=== PATIENT | female | born 1955 | race Caucasian/White ===

== ENCOUNTER 2017-10-07 15:50 | Inpatient (IN) ==
[2017-10-07 16:53] LABS: Basophils % 0.3 %; Eosinophils % 0.2 %; Hematocrit 39.6 % (35.3-44.9); Hemoglobin 13.3 g/dL (11.5-15.4); Immature Granulocytes % 0.4 % (0-4); Lymphocytes # 0.5 K/mcL (0.6-4.6); Mean Corpuscular HGB Conc 33.6 g/dL (31.6-35.5); Mean Corpuscular Hemoglobin 29.8 pg (28.0-33.3); Mean Corpuscular Volume 88.8 fL (83.0-100.0); Mean Platelet Volume 9.6 fL (9.4-12.4); Monocytes # 0.4 K/mcL (0.0-1.3); Monocytes % 2.8 %; Neutrophils # 11.6 K/mcL (1.6-8.9); Platelet Count 192 K/mcL (140-400); Red Blood Count 4.46 M/mcL (3.82-4.97); Red Cell Distribution Width 13.2 % (11.5-14.5); Segmented Neutrophils % 92.3 %
[2017-10-07 17:03] LABS: Activated Partial Thrombo Time 31.3 Seconds (26.0-36.0)
[2017-10-07 17:10] LABS: Bilirubin,Urine Negative (Negative); Blood,Urine Small (Negative); Clarity,Urine Cloudy (Clear); Color,Urine Yellow (Yellow); Glucose,Urine (UA) Normal (Normal); Ketones,Urine Trace mg/dL (Negative); Leukocyte Esterase,Urine Large (Negative); Nitrite,Urine Negative (Negative); PH,Urine 5.5 pH Units (5.0-8.0); Protein,Urine 30 mg/dL (Neg-Trace); Specific Gravity,Urine 1.026 (1.010-1.025); Urobilinogen,Urine Normal (Normal)
[2017-10-07 17:11] LABS: Bacteria,Urine Few per hpf (None-Few); Hyaline Casts,Urine None Seen per lpf (None-Few); RBC,Urine 15-30 per hpf (0-3); Squamous Epithelial Cell,Urine Many per lpf (None-Few); WBC,Urine TNTC per hpf (0-3)
[2017-10-07 17:12] LABS: BUN/Creatinine Ratio 25 (6-26); Blood Urea Nitrogen 18 mg/dL (8-23); Calcium 9.5 mg/dL (8.6-10.3); Carbon Dioxide 26 mEq/L (23-29); Chloride 104 mEq/L (98-107); Glucose 97 mg/dL (70-105); Osmolality,Calculated 288 (280-300); Potassium 4.1 mEq/L (3.5-5.1); Sodium 138 mEq/L (136-145); eGFR For Non-African Americans > 60 (> 60)
[2017-10-07] MEDS ORDERED: Levofloxacin 750 MG/150 ML 750 MG/150 ML BAG IVPB ONE (17:22)
[2017-10-07] MEDS ORDERED: Ketorolac 15 MG/ML VIAL IVP ONE (17:33)
[2017-10-07 17:38] LABS: Prothrombin Time 11.2 Seconds (9.4-12.1)
[2017-10-07] MEDS ORDERED: cefTRIAXone 2,000 MG in Water for inj. (sterile) 20 ML 20 ML IVP ONE (18:05)
--- NOTE | 2017-10-07 18:05 | Emergency Department Note ---
Disposition Clinical Impression: Left flank pain, Ureterolithiasis Abdominal pain Qualifiers: Abdominal location: left lower quadrant Qualified Code(s): R10.32 - Left lower quadrant pain Disposition: Admitted As Inpatient Condition: Fair Time of Disposition: 18:34 Abdominal Pain HPI - General Chief Complaint: ED Abdominal Pain Stated Complaint: Kidney Stone Time Seen by Provider: 10/07/17 15:53 Source: patient, EMS Nursing Notes Reviewed: Yes Vital Signs Reviewed: Yes - History of Present Illness HPI Narrative: Patient is a 62-year-old female who presents to [facility] ED with a chief complaint of abdominal pain. States earlier today around 13:00 , her pain hit and states it was so bad that it doubled her over. She went to the urgent care where they performed an x-ray and saw a large kidney stone. She was given Toradol and Phenergan and transferred over here for further evaluation. Patient states she was nauseated and vomited twice with this painful episode. Denies any prior history of kidney stones. She has a past medical history of rheumatoid arthritis. Pt Subjective Complaint: abdominal pain Onset (ago): hour(s) Consistency: Improving Location: LLQ, L flank Pain Severity: moderate Pain Scale: 6 Quality: stabbing, aching Radiation: L flank Migration to: no migration Improves with: nothing Worsens with: nothing Associated symptoms: Reports: nausea, vomiting. Denies: diarrhea, fever, chills , constipation, dysuria Treatments prior to arrival: NSAIDs - Related Data Home Medications Medication Instructions Recorded Confirmed Citalopram Hydrobromide 40 mg PO DAILY 10/07/17 10/07/17 [Citalopram HBr] Hydroxychloroquine [Plaquenuil] 200 mg PO BID 10/07/17 10/07/17 Naproxen [Naproxen] 500 mg PO BID 10/07/17 10/07/17 Tramadol HCl [Ultram] 50 mg PO BID PRN 10/07/17 10/07/17 Allergies Allergy/AdvReac Type Severity Reaction Status Date / Time No Known Allergies Allergy Verified 10/07/17 17:40 All systems ED: reviewed and negative except as stated. Abdominal Pain PMH - Past Medical History Medical history: Reports: RA Female Surgical History: Reports: no surgical history Psychiatric history: Reports: no psych history - Social History Smoking status: Never smoker Alcohol use: Reports: none Drug use: Reports: unknown Physical Exam - General Limitations: no limitations General appearance: alert, in no apparent distress - Head Head exam: atraumatic, normocephalic, normal inspection - Eye Eye exam: Present: normal appearance, EOMI - ENT ENT exam: normal exam, normal oropharynx, mucous membranes moist - Neck Neck exam: Present: normal inspection, full ROM, trachea midline - Chest Chest inspection: Present: normal inspection, symmetric chest wall rise - Respiratory Respiratory exam: Present: normal lung sounds bilaterally - Cardiovascular Cardiovascular exam: Present: regular rate, normal rhythm, normal heart sounds - Abdominal Exam Abdominal exam: Present: soft, tenderness Abdominal tenderness: Present: LLQ, mild - Extremities Exam Extremities exam: Present: normal inspection, full ROM. Absent: tenderness, pedal edema - Back Exam Back exam: Present: normal inspection, full ROM, CVA tenderness (L) - Neurological Exam Neurological exam: Present: alert, oriented X3 - Psychiatric Psychiatric exam: Present: normal affect, normal mood - Skin Skin exam: Present: warm, dry, intact, normal color Course Course Narrative: Patient seen and examined. Left abdominal pain leading to the flank. Diagnosis of renal stone on x-ray at urgent care. Lab work, urine analysis, CT abdomen and pelvis ordered. - Reevaluation(s) Reevaluation #1: Labwork shows mild leukocytosis and elevated white blood cells in the urine as well as a small amount of bacteria in the urine. We will go ahead and cover with Levaquin. The CT scan shows an 8 mm obstructing stone at the left UPJ with moderate hydronephrosis. I discussed with urologist Dr. De La Rosa who states if the pains under control, we can get the patient going home and she can follow -up tomorrow morning in his office. I discussed this with the patient and she was concerned about not being able to get a ride in the morning for her appointment and about living alone at home and her pain coming out. Since she has some difficulty with resources and follow-up, we will go ahead and admit her. I called urologist back and they have been consulted. Patient admitted to the hospitalist service. Time: 18:33 Vital Signs Temperature 97.8 F 10/07/17 15:52 Pulse Rate 82 10/07/17 15:52 Respiratory Rate 18 10/07/17 15:52 Blood Pressure 134/63 10/07/17 15:52 O2 Sat by Pulse Oximetry 98 10/07/17 15:52 Temperature 97.8 F 10/07/17 15:52 Pulse Rate 77 10/07/17 17:44 Respiratory Rate 16 10/07/17 19:00 Blood Pressure 119/65 10/07/17 19:00 O2 Sat by Pulse Oximetry 95 10/07/17 17:44 Oxygen Delivery Oxygen Delivery Room Air Abdominal Pain - Medical Records Medical records reviewed: Yes I reviewed the patient's medical records. - Lab Data Lab results reviewed: Yes I reviewed the patient's lab results. Result diagrams: 10/07/17 16:27 10/07/17 16:27 Lab Results 10/07/17 10/07/17 10/07/17 Range/Units 16:27 16:27 16:27 WBC 12.6 H (4.3-11.1) K/mcL RBC 4.46 (3.82-4.97) M/mcL Hgb 13.3 (11.5-15.4) g/dL Hct 39.6 (35.3-44.9) % MCV 88.8 (83.0-100.0) fL MCH 29.8 (28.0-33.3) pg MCHC 33.6 (31.6-35.5) g/dL RDW 13.2 (11.5-14.5) % Plt Count 192 (140-400) K/mcL MPV 9.6 (9.4-12.4) fL Immature Gran % 0.4 (0-4) % Seg Neutrophils % 92.3 % Lymphocytes % 4.0 % Monocytes % 2.8 % Eosinophils % 0.2 % Basophils % 0.3 % Neutrophils # 11.6 H (1.6-8.9) K/mcL Lymphocytes # 0.5 L (0.6-4.6) K/mcL Monocytes # 0.4 (0.0-1.3) K/mcL Eosinophils # 0.0 (0.0-0.6) K/mcL Basophils # 0.0 (0.0-0.2) K/mcL PT 11.2 (9.4-12.1) Seconds INR 1.0 APTT 31.3 (26.0-36.0) Seconds Sodium 138 (136-145) mEq/L Potassium 4.1 (3.5-5.1) mEq/L Chloride 104 (98-107) mEq/L Carbon Dioxide 26 (23-29) mEq/L BUN 18 (8-23) mg/dL Creatinine 0.71 (0.60-1.20) mg/dL Est GFR ( Amer) > 60 (> 60) Est GFR (Non-Af Amer) > 60 (> 60) BUN/Creatinine Ratio 25 (6-26) Glucose 97 (70-105) mg/dL Calculated Osmolality 288 (280-300) Calcium 9.5 (8.6-10.3) mg/dL Urine Color (Yellow) Urine Clarity (Clear) Urine pH (5.0-8.0) pH Units Ur Specific [place] (1.010-1.025) Urine Protein (Neg-Trace) mg/dL Urine Glucose (UA) (Normal) mg/dL Urine Ketones (Negative) mg/dL Urine Blood (Negative) Urine Nitrite (Negative) Urine Bilirubin (Negative) Urine Urobilinogen (Normal) mg/dL Ur Leukocyte Esterase (Negative) Urine Microscopic RBC (0-3) per hpf Urine Microscopic WBC (0-3) per hpf Ur Squamous Epith Cells (None-Few) per lpf Urine Bacteria (None-Few) per hpf Hyaline Casts (None-Few) per lpf Ur Culture Indicated? (NO) 10/07/17 Range/Units 16:58 WBC (4.3-11.1) K/mcL RBC (3.82-4.97) M/mcL Hgb (11.5-15.4) g/dL Hct (35.3-44.9) % MCV (83.0-100.0) fL MCH (28.0-33.3) pg MCHC (31.6-35.5) g/dL RDW (11.5-14.5) % Plt Count (140-400) K/mcL MPV (9.4-12.4) fL Immature Gran % (0-4) % Seg Neutrophils % % Lymphocytes % % Monocytes % % Eosinophils % % Basophils % % Neutrophils # (1.6-8.9) K/mcL Lymphocytes # (0.6-4.6) K/mcL Monocytes # (0.0-1.3) K/mcL Eosinophils # (0.0-0.6) K/mcL Basophils # (0.0-0.2) K/mcL PT (9.4-12.1) Seconds INR APTT (26.0-36.0) Seconds Sodium (136-145) mEq/L Potassium (3.5-5.1) mEq/L Chloride (98-107) mEq/L Carbon Dioxide (23-29) mEq/L BUN (8-23) mg/dL Creatinine (0.60-1.20) mg/dL Est GFR ( Amer) (> 60) Est GFR (Non-Af Amer) (> 60) BUN/Creatinine Ratio (6-26) Glucose (70-105) mg/dL Calculated Osmolality (280-300) Calcium (8.6-10.3) mg/dL Urine Color Yellow (Yellow) Urine Clarity Cloudy A (Clear) Urine pH 5.5 (5.0-8.0) pH Units Ur Specific [place] 1.026 H (1.010-1.025) Urine Protein 30 H (Neg-Trace) mg/dL Urine Glucose (UA) Normal (Normal) mg/dL Urine Ketones Trace H (Negative) mg/dL Urine Blood Small H (Negative) Urine Nitrite Negative (Negative) Urine Bilirubin Negative (Negative) Urine Urobilinogen Normal (Normal) mg/dL Ur Leukocyte Esterase Large H (Negative) Urine Microscopic RBC 15-30 H (0-3) per hpf Urine Microscopic WBC TNTC H (0-3) per hpf Ur Squamous Epith Cells Many H (None-Few) per lpf Urine Bacteria Few (None-Few) per hpf Hyaline Casts None Seen (None-Few) per lpf Ur Culture Indicated? NO (NO) - Radiology Data Radiology results reviewed: Yes I reviewed the patient's radiology results. Abdomen/Pelvis CT 10/07/17 16:26 IMPRESSION: 1. Obstructing 8 mm stone at the left UPJ, resulting in moderate left-sided hydronephrosis. 2. Subtle layering hyperdensity noted within the gallbladder could indicate sludge or small gallstones. D/ / 10/07/2017 17:04:18 Anthony Ledesma MD / ivelisse Interpreting Provider: Anthony Ledesma MD
--- NOTE | 2017-10-07 18:45 | Emergency Department Note ---
Disposition Clinical Impression: Abdominal pain, Left flank pain, Ureterolithiasis Disposition: Admitted As Inpatient Condition: Fair Abdominal Pain HPI - General Chief Complaint: ED Abdominal Pain Stated Complaint: Kidney Stone Time Seen by Provider: 10/07/17 15:53 Source: patient, EMS Mode of arrival: ambulatory Limitations: no limitations Nursing Notes Reviewed: Yes Vital Signs Reviewed: Yes - History of Present Illness Pain Scale: 6 - Related Data Home Medications Medication Instructions Recorded Confirmed Citalopram Hydrobromide 40 mg PO DAILY 10/07/17 10/07/17 [Citalopram HBr] Hydroxychloroquine [Plaquenuil] 200 mg PO BID 10/07/17 10/07/17 Naproxen 500 mg PO BID 10/07/17 10/07/17 Tramadol HCl [Ultram] 50 mg PO BID PRN 10/07/17 10/07/17 Previous Rx's Medication Instructions Recorded HYDROcodone/Acet 5/325 mg [[place] 1 tab PO Q6HR PRN 1 Days #4 tablet 10/08/17 5-325 mg] Allergies Allergy/AdvReac Type Severity Reaction Status Date / Time No Known Allergies Allergy Verified 10/07/17 17:40 Abdominal Pain PMH - Past Medical History Medical history: Reports: RA Female Surgical History: Reports: no surgical history Psychiatric history: Reports: no psych history - Social History Smoking status: Never smoker Alcohol use: Reports: none Drug use: Reports: unknown Physical Exam - General Limitations: no limitations General appearance: alert, in no apparent distress Course Vital Signs Temperature 97.8 F 10/07/17 15:52 Pulse Rate 82 10/07/17 15:52 Respiratory Rate 18 10/07/17 15:52 Blood Pressure 134/63 10/07/17 15:52 O2 Sat by Pulse Oximetry 98 10/07/17 15:52 Temperature 98.3 F 10/09/17 06:29 Pulse Rate 80 10/09/17 06:29 Respiratory Rate 15 10/09/17 06:29 Blood Pressure 129/82 10/09/17 06:29 O2 Sat by Pulse Oximetry 95 10/09/17 06:29 Oxygen Delivery Oxygen Delivery Room Air Abdominal Pain - Lab Data Result diagrams: 10/08/17 04:55 10/08/17 04:55 Lab Results 10/07/17 10/07/17 10/07/17 Range/Units 16:27 16:27 16:27 WBC 12.6 H (4.3-11.1) K/mcL RBC 4.46 (3.82-4.97) M/mcL Hgb 13.3 (11.5-15.4) g/dL Hct 39.6 (35.3-44.9) % MCV 88.8 (83.0-100.0) fL MCH 29.8 (28.0-33.3) pg MCHC 33.6 (31.6-35.5) g/dL RDW 13.2 (11.5-14.5) % Plt Count 192 (140-400) K/mcL MPV 9.6 (9.4-12.4) fL Immature Gran % 0.4 (0-4) % Seg Neutrophils % 92.3 % Lymphocytes % 4.0 % Monocytes % 2.8 % Eosinophils % 0.2 % Basophils % 0.3 % Neutrophils # 11.6 H (1.6-8.9) K/mcL Lymphocytes # 0.5 L (0.6-4.6) K/mcL Monocytes # 0.4 (0.0-1.3) K/mcL Eosinophils # 0.0 (0.0-0.6) K/mcL Basophils # 0.0 (0.0-0.2) K/mcL PT 11.2 (9.4-12.1) Seconds INR 1.0 APTT 31.3 (26.0-36.0) Seconds Sodium 138 (136-145) mEq/L Potassium 4.1 (3.5-5.1) mEq/L Chloride 104 (98-107) mEq/L Carbon Dioxide 26 (23-29) mEq/L BUN 18 (8-23) mg/dL Creatinine 0.71 (0.60-1.20) mg/dL Est GFR ( Amer) > 60 (> 60) Est GFR (Non-Af Amer) > 60 (> 60) BUN/Creatinine Ratio 25 (6-26) Glucose 97 (70-105) mg/dL Calculated Osmolality 288 (280-300) Calcium 9.5 (8.6-10.3) mg/dL Urine Color (Yellow) Urine Clarity (Clear) Urine pH (5.0-8.0) pH Units Ur Specific [place] (1.010-1.025) Urine Protein (Neg-Trace) mg/dL Urine Glucose (UA) (Normal) mg/dL Urine Ketones (Negative) mg/dL Urine Blood (Negative) Urine Nitrite (Negative) Urine Bilirubin (Negative) Urine Urobilinogen (Normal) mg/dL Ur Leukocyte Esterase (Negative) Urine Microscopic RBC (0-3) per hpf Urine Microscopic WBC (0-3) per hpf Ur Squamous Epith Cells (None-Few) per lpf Urine Bacteria (None-Few) per hpf Hyaline Casts (None-Few) per lpf Ur Culture Indicated? (NO) 10/07/17 10/08/17 10/08/17 Range/Units 16:58 04:55 04:55 WBC 9.0 (4.3-11.1) K/mcL RBC 4.18 (3.82-4.97) M/mcL Hgb 12.8 (11.5-15.4) g/dL Hct 37.3 (35.3-44.9) % MCV 89.2 (83.0-100.0) fL MCH 30.6 (28.0-33.3) pg MCHC 34.3 (31.6-35.5) g/dL RDW 13.3 (11.5-14.5) % Plt Count 158 (140-400) K/mcL MPV 9.3 L (9.4-12.4) fL Immature Gran % 0.2 (0-4) % Seg Neutrophils % 80.9 % Lymphocytes % 11.9 % Monocytes % 6.1 % Eosinophils % 0.6 % Basophils % 0.3 % Neutrophils # 7.3 (1.6-8.9) K/mcL Lymphocytes # 1.1 (0.6-4.6) K/mcL Monocytes # 0.6 (0.0-1.3) K/mcL Eosinophils # 0.1 (0.0-0.6) K/mcL Basophils # 0.0 (0.0-0.2) K/mcL PT (9.4-12.1) Seconds INR APTT (26.0-36.0) Seconds Sodium 141 (136-145) mEq/L Potassium 4.0 (3.5-5.1) mEq/L Chloride 109 H (98-107) mEq/L Carbon Dioxide 24 (23-29) mEq/L BUN 19 (8-23) mg/dL Creatinine 0.70 (0.60-1.20) mg/dL Est GFR ( Amer) > 60 (> 60) Est GFR (Non-Af Amer) > 60 (> 60) BUN/Creatinine Ratio 27 H (6-26) Glucose 106 H (70-105) mg/dL Calculated Osmolality 295 (280-300) Calcium 8.9 (8.6-10.3) mg/dL Urine Color Yellow (Yellow) Urine Clarity Cloudy A (Clear) Urine pH 5.5 (5.0-8.0) pH Units Ur Specific [place] 1.026 H (1.010-1.025) Urine Protein 30 H (Neg-Trace) mg/dL Urine Glucose (UA) Normal (Normal) mg/dL Urine Ketones Trace H (Negative) mg/dL Urine Blood Small H (Negative) Urine Nitrite Negative (Negative) Urine Bilirubin Negative (Negative) Urine Urobilinogen Normal (Normal) mg/dL Ur Leukocyte Esterase Large H (Negative) Urine Microscopic RBC 15-30 H (0-3) per hpf Urine Microscopic WBC TNTC H (0-3) per hpf Ur Squamous Epith Cells Many H (None-Few) per lpf Urine Bacteria Few (None-Few) per hpf Hyaline Casts None Seen (None-Few) per lpf Ur Culture Indicated? NO (NO) Attestation Statement - Attestation Attestation: I, Facundo Parada, examined this patient and my medical decision-making was reviewed with the CONTENT STRATEGIST/PA/Advanced Practice Nurse/Resident Physician. I agree with the documented findings, disposition and treatment plan as described except to the extent set forth below. 62-year-old female presents emergency with concerns of flank pain. Patient had a KUB performed at outside emergency department which showed a possible 11 mm stone in the ureter. She was sent to the emergency department for further evaluation. Patient states her pain was unbearable at home, she was taking tramadol at home for pain control. Patient pain is now controlled emergency department after treatment with pain medication. CT of the abdomen and pelvis shows a millimeters stone in the right ureter with associated hydronephrosis. Patient also has a urine with significant amount of blood cells present however there is few bacteria. We will start the patient on antibiotics for possible early urinary tract infection associated with stone. Patient will be admitted to the hospitalist for further care and evaluation, urologist, Dr. De La Rosa, was consulted from the emergency department.
[2017-10-07] MEDS ORDERED: Naloxone 0.4 MG/ML INJ IVP PRN (19:15)
--- NOTE | 2017-10-07 19:28 | Internal Med History&Physical ---
<Haley Ramos - Last Filed: 10/07/17 20:45> Date of Encounter: 10/07/17 Time of Encounter: 19:28 Internal Medicine - H&P: HPI Chief complaint: Abdominal pain, Renal calculus Admitted From: Home Plans for Post Hospital Care: Home History of present illness: Ms. Zapata is a 62 year old female with history of RA. Patient with onset of abdominal pain in the morning. She went to the urgent care and a 8mm stone was found on xray. CT of abd/pelvis showed a 8 mm stone in the left UPJ. She also had mod left sided hydronephrosis. There is also subtle layering hyperdensity could be sludge or small gallstone. Patient has no hx of kidney trouble. WBC is 12.6, hgb is 13.3, UA showed large leukocyte esterase and wbc 15-30, protein 30. She was stsrted on levaquin and rocephin in the ED. The patient continues with left abdominal pain and left flank pain. Toradol was given in ED. Urology was consulted and will see the patient. I discussed the patient with Dr. Granados. Past Med Surg Social Fam HX - Past Medical History Medical history: RA Psychiatric history: no psych history - Social History Smoking Status: Never smoker Smokeless Tobacco Status: No Alcohol use: none Drug use: unknown - Family History Father Living Status: Hx Family Cancer: Yes (larnyx) Internal Medicine - H&P: Meds Citalopram Hydrobromide [Citalopram HBr] 40 mg PO DAILY 10/07/17 [History] Hydroxychloroquine [Plaquenuil] 200 mg PO BID 10/07/17 [History] Naproxen [Naproxen] 500 mg PO BID 10/07/17 [History] Tramadol HCl [Ultram] 50 mg PO BID PRN 10/07/17 [History] 3 Allergy/AdvReac Type Severity Reaction Status Date / Time No Known Allergies Allergy Verified 10/07/17 17:40 All Systems PM: A 10-system review of systems was performed and is negative for pertinent findings except as documented above in the HPI. - Constitutional Constitutional: no chills, no fever(s), no night sweats - EENT Eyes: no change in vision, no discharge, no pain, no photophobia Ears: no ear discharge, no ear pain, no tinnitus Nose, mouth and throat: no dysphagia, no nasal discharge, no neck pain, no sore throat - Cardiovascular Cardiovascular ROS IM: no chest pain, no diaphoresis, no dyspnea, no lightheadedness, no palpitations, no syncope - Respiratory Respiratory: no cough, no dyspnea, no wheezing, no excessive phlegm production - Gastrointestinal Gastrointestinal: abdominal pain, no diarrhea, no hematemesis, no hematochezia, no melena, no nausea, no vomiting - Genitourinary Genitourinary: flank pain, no change in urinary stream, no dysuria, no hematuria - Musculoskeletal Musculoskeletal ROS IM: no numbness, no tingling - Integumentary Integumentary IM: no rash, no unusual bruising - Neurological Neurological ROS: no confusion, no convulsions, no focal weakness, no numbness, no tingling, no tremor(s) - Hematologic/Lymphatic Hematologic/Lymphatic: no easy bruising - Constitutional Vitals: Temp Pulse Resp BP Pulse Ox 97.8 F 77 16 119/65 95 10/07/17 15:52 10/07/17 17:44 10/07/17 19:00 10/07/17 19:00 10/07/17 17:44 General appearance: Present: A&O X 3, answers questions appropriately - Head Head exam: Present: atraumatic, normocephalic - Eye Eye exam: Present: PERRL, conjuntiva pink, sclera anicteric Pupils: Present: PERRL - Neck Neck exam general surgery: Present: supple, trachea midline. Absent: lymphadenopathy - Respiratory Respiratory exam: Present: CTAB. Absent: accessory muscle use, rales, rhonchi, wheezes - Cardiovascular Cardiovascular exam: Present: RRR, +S1, +S2. Absent: diastolic murmur, gallop, rubs, systolic murmur - GI/Abdominal GI/Abdominal exam: Present: normal bowel sounds, soft, tenderness (Left abdomen and left flank), no peritoneal signs. Absent: distended - Extremities Exam Extremities exam: Present: warm, radial pulses palpable and symmetrical. Absent : calf tenderness, cyanotic, pedal edema - Neurological Exam Neurological exam: Present: CN II-XII intact, oriented X3, no focal deficits. Absent: pronater drift, facial droop, speech deficit - Skin Skin exam: Present: dry, intact Internal Med - H&P Results - Labs CBC & Chem 7: 10/07/17 16:27 10/07/17 16:27 - Assessment and plan (1) Abdominal pain Current Visit: Yes Status: Acute Assessment and plan: Urethrolithiases likely causing the patient's pain Toradol iv q6 prn Urology was consulted. Monitor daily labs Qualifiers: Abdominal location: left lower quadrant Qualified Code(s): R10.32 - Left lower quadrant pain (2) Left flank pain Current Visit: Yes Status: Acute Assessment and plan: Urethrolithiases likely causing the patient's pain Toradol iv q6 prn Urology was consulted. Monitor daily labs (3) Ureterolithiasis Current Visit: Yes Status: Acute Assessment and plan: Managed per urology Urethrolithiases likely causing the patient's pain Toradol iv q6 prn Monitor daily labs (4) Rheumatoid arthritis Current Visit: Yes Status: Chronic Assessment and plan: Patient RA is managed outpatient Will continue home medications Qualifiers: Rheumatoid arthritis location: unspecified site Rheumatoid factor presence : unspecified presence Qualified Code(s): M06.9 - Rheumatoid arthritis, unspecified - Time Spent With Patient Total time spent is greater than 50% in coordination of care (as documented) at patient's floor/unit and/or counseling patient: 25 - 35 minutes <Rubens Red P - Last Filed: 10/07/17 21:54> Date of Encounter: 10/07/17 Internal Medicine - H&P: HPI History of present illness: Ms. Zapata is a 62 year old female All Systems PM: A 10-system review of systems was performed and is negative for pertinent findings except as documented above in the HPI. - Constitutional Vitals: Temp Pulse Resp BP Pulse Ox 97.8 F 77 16 119/65 95 10/07/17 15:52 10/07/17 17:44 10/07/17 19:00 10/07/17 19:00 10/07/17 17:44 Internal Med - H&P Results - Labs CBC & Chem 7: 10/07/17 16:27 10/07/17 16:27 - Attending Attestation I have seen the patient and performed my own history and physical examination. I have discussed the case with the admitting CERTIFIED [employer]ACILITY OPERATOR, and I agree with her assessment and plan of care as documented in her H&P. Briefly, patient admitted for 8 mm kidney stone in left UPJ with moderate left hydronephrosis. She will be admitted for observation. Urology has been consulted. Will continue on IVF and IV rocephin. IV toradol and PO norco for pain control. IV zofran for nausea/vomiting. NPO after midnight. Will await further recommendations from urology. Repeat labwork in AM. - Time Spent With Patient Total time spent is greater than 50% in coordination of care (as documented) at patient's floor/unit and/or counseling patient:
[2017-10-07] MEDS ORDERED: 0.9 % Sodium Chloride 1,000 ML IVC SCH (19:30)
[2017-10-07] MEDS: Ketorolac 30 MG/ML VIAL IVP PRN (19:45)
[2017-10-07] MEDS ORDERED: Ondansetron 4 MG/2 ML VIAL IVP PRN (20:38)
[2017-10-08] MEDS: *HR* HYDROcodone/Acet 5/325 mg TABLET PO PRN ×3 (00:10→14:17)
[2017-10-08 05:14] LABS: Basophils % 0.3 %; Eosinophils # 0.1 K/mcL (0.0-0.6); Eosinophils % 0.6 %; Hematocrit 37.3 % (35.3-44.9); Hemoglobin 12.8 g/dL (11.5-15.4); Immature Granulocytes % 0.2 % (0-4); Lymphocytes # 1.1 K/mcL (0.6-4.6); Lymphocytes % 11.9 %; Mean Corpuscular HGB Conc 34.3 g/dL (31.6-35.5); Mean Corpuscular Hemoglobin 30.6 pg (28.0-33.3); Mean Corpuscular Volume 89.2 fL (83.0-100.0); Mean Platelet Volume 9.3 fL (9.4-12.4); Monocytes # 0.6 K/mcL (0.0-1.3); Monocytes % 6.1 %; Neutrophils # 7.3 K/mcL (1.6-8.9); Platelet Count 158 K/mcL (140-400); Red Blood Count 4.18 M/mcL (3.82-4.97); Red Cell Distribution Width 13.3 % (11.5-14.5); Segmented Neutrophils % 80.9 %
[2017-10-08 05:31] LABS: BUN/Creatinine Ratio 27 (6-26); Blood Urea Nitrogen 19 mg/dL (8-23); Calcium 8.9 mg/dL (8.6-10.3); Carbon Dioxide 24 mEq/L (23-29); Chloride 109 mEq/L (98-107); Glucose 106 mg/dL (70-105); Osmolality,Calculated 295 (280-300); Sodium 141 mEq/L (136-145); eGFR For Non-African Americans > 60 (> 60)
--- NOTE | 2017-10-08 07:30 | Urology - Consult Note ---
Date of Encounter: 10/08/17 Time of Encounter: 07:28 - Assessment and Plan (1) Ureterolithiasis Current Visit: Yes Status: Acute Assessment and plan: We will plan on taking the patient to the operative today for cystoscopy and left ureteral stent placement. Urology CN:ASHWIN Consult date: 10/08/17 Reason for consult Urology: Hydronephrosis Requesting physician: Rubens Red History of present illness: Diann is a 62-year-old female with a history of admission to the hospital secondary to severe left-sided flank pain. Patient was found on KUB followed by CT scan to have a large proximal 8 mm to 1 cm UPJ stone. Patient also was some proximal hydronephrosis. Patient also with some nausea without vomiting. No fevers. Agents urinalysis was consistent with possible early UTI. Patient with mildly elevated leukocytosis. Past Med Surg Social Fam HX - Past Medical History Medical history: RA Psychiatric history: no psych history - Past Surgical History Surgical History: no surgical history - Social History Smoking Status: Never smoker Smokeless Tobacco Status: No Alcohol use: none Drug use: unknown - Family History Father Living Status: Hx Family Cancer: Yes (larnyx) Medications and Allergies Citalopram Hydrobromide [Citalopram HBr] 40 mg PO DAILY 10/07/17 [History] Hydroxychloroquine [Plaquenuil] 200 mg PO BID 10/07/17 [History] Naproxen [Naproxen] 500 mg PO BID 10/07/17 [History] Tramadol HCl [Ultram] 50 mg PO BID PRN 10/07/17 [History] 3 Allergy/AdvReac Type Severity Reaction Status Date / Time No Known Allergies Allergy Verified 10/07/17 17:40 Review of Systems - Constitutional no chills, no fever(s) - EENT Nose, mouth and throat: no dizziness - Cardiovascular no chest pain - Respiratory no cough, no dyspnea - Gastrointestinal no abdominal pain Exam Initial Vital Signs Temp Pulse Resp BP Pulse Ox 97.8 F 82 18 134/63 98 10/07/17 15:52 10/07/17 15:52 10/07/17 15:52 10/07/17 15:52 10/07/17 15:52 General/Neuological: alert and oriented x 3 Eyes: normal pupils, non-icteric Neck: no lymphadenopathy noted, supple to touch ABD: soft, nontender, no masses palpated, good bowel sounds Back: no pain on percussion bilaterally Skin: no rashes noted Musculoskeletal: normal gait, FROMx4 Urology Results - Labs 10/08/17 04:55 10/08/17 04:55 Abnormal lab results MPV 9.3 fL (9.4-12.4) L 10/08/17 04:55 Chloride 109 mEq/L (98-107) H 10/08/17 04:55 BUN/Creatinine Ratio 27 (6-26) H 10/08/17 04:55 Glucose 106 mg/dL (70-105) H 10/08/17 04:55 Urine Clarity Cloudy (Clear) A 10/07/17 16:58 Ur Specific [place] 1.026 (1.010-1.025) H 10/07/17 16:58 Urine Protein 30 mg/dL (Neg-Trace) H 10/07/17 16:58 Urine Ketones Trace mg/dL (Negative) H 10/07/17 16:58 Urine Blood Small (Negative) H 10/07/17 16:58 Ur Leukocyte Esterase Large (Negative) H 10/07/17 16:58 Urine Microscopic RBC 15-30 per hpf (0-3) H 10/07/17 16:58 Urine Microscopic WBC TNTC per hpf (0-3) H 10/07/17 16:58 Ur Squamous Epith Cells Many per lpf (None-Few) H 10/07/17 16:58 Diabetes panel 10/08/17 Range/Units 04:55 Sodium 141 (136-145) mEq/L Potassium 4.0 (3.5-5.1) mEq/L Chloride 109 H (98-107) mEq/L Carbon Dioxide 24 (23-29) mEq/L BUN 19 (8-23) mg/dL Creatinine 0.70 (0.60-1.20) mg/dL Glucose 106 H (70-105) mg/dL Calcium 8.9 (8.6-10.3) mg/dL Calcium panel 10/08/17 Range/Units 04:55 Calcium 8.9 (8.6-10.3) mg/dL Pituitary panel 10/08/17 Range/Units 04:55 Sodium 141 (136-145) mEq/L Potassium 4.0 (3.5-5.1) mEq/L Chloride 109 H (98-107) mEq/L Carbon Dioxide 24 (23-29) mEq/L BUN 19 (8-23) mg/dL Creatinine 0.70 (0.60-1.20) mg/dL Glucose 106 H (70-105) mg/dL Calcium 8.9 (8.6-10.3) mg/dL Adrenal panel 10/08/17 Range/Units 04:55 Sodium 141 (136-145) mEq/L Potassium 4.0 (3.5-5.1) mEq/L Chloride 109 H (98-107) mEq/L Carbon Dioxide 24 (23-29) mEq/L BUN 19 (8-23) mg/dL Creatinine 0.70 (0.60-1.20) mg/dL Glucose 106 H (70-105) mg/dL Calcium 8.9 (8.6-10.3) mg/dL All other labs normal. - Imaging CT scan - abdomen: image reviewed CT scan - pelvis: image reviewed Consult Discharge Plan - Plan Referrals: Annabel Wills MD [Primary Care Provider] -
[2017-10-08] MEDS: Ketorolac 30 MG/ML VIAL IVP PRN (10:38)
--- NOTE | 2017-10-08 11:40 | Anesthesia Evaluation PreOp ---
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 SPECIALIST History: Denies Any Significant HX Other Medical History: Denies Any Significant HX, Other (RA) Anesthesia History: Past Anesthesia (NO prior GA), MH (NO FamHx of MH) Alcohol Use: none Drug use: unknown Medications and Allergies Citalopram Hydrobromide [Citalopram HBr] 40 mg PO DAILY 10/07/17 [History] Hydroxychloroquine [Plaquenuil] 200 mg PO BID 10/07/17 [History] Naproxen [Naproxen] 500 mg PO BID 10/07/17 [History] Tramadol HCl [Ultram] 50 mg PO BID PRN 10/07/17 [History] 3 Allergy/AdvReac Type Severity Reaction Status Date / Time No Known Allergies Allergy Verified 10/07/17 17:40 - Meds/Allergy Pre-op Review Medications Reviewed: Yes Allergies Reviewed: Yes Beta Blockers on Current Med List: No Anesthesia Results - Labs 10/08/17 04:55 10/08/17 04:55 Laboratory Results Impressions Abdomen/Pelvis CT 10/07/17 16:26 IMPRESSION: 1. Obstructing 8 mm stone at the left UPJ, resulting in moderate left-sided hydronephrosis. 2. Subtle layering hyperdensity noted within the gallbladder could indicate sludge or small gallstones. D/ / 10/07/2017 17:04:18 Anthony Ledesma MD / ivelisse Interpreting Provider: Anthony Ledesma MD Anesthesia Exam Vital Signs Temp Pulse Resp BP Pulse Ox 10/08/17 11:21 97.6 F 58 18 145/83 99 10/08/17 11:19 97.6 F 74 16 113/67 94 10/08/17 07:06 97.5 F L 76 18 131/71 97 10/08/17 03:40 77 116/74 10/07/17 22:51 97.4 F L 96 16 118/68 97 10/07/17 19:00 16 119/65 10/07/17 17:44 77 18 135/62 95 10/07/17 16:36 78 18 131/70 98 10/07/17 15:52 97.8 F 82 18 134/63 98 Intake and Output 10/07/17 10/08/17 10/08/17 23:59 07:59 15:59 Intake Total 50 / 50 Output Total 700 / 700 Balance 50 / 50 -700 / -700 Intake: IV Fluids 50 / 50 Levaquin Premix 750mg/150 mL 50 / 50 750 mg In 150 ml @ 100 mls/hr IVPB ONCE ONE Rx#:[id number] Output: Urine 700 / 700 Other: Weight 79.038 kg Patient Weight 10/08/17 23:59 Weight 79.038 kg Height: 5'9" Weight: 174# BMI = 26 NPO (# of Hours): MNOc - HEENT Pupil (Motor): Pupils equal, EOMI Mallampati: II Teeth: Edentulous Oral Opening: Greater than 3 - VECTOR CONTROL SPECIALIST LOC: Oriented VECTOR CONTROL SPECIALIST Motor: Normal RUE, Normal LUE, Normal RLE, Normal LLE, Normal Face VECTOR CONTROL SPECIALIST Sensory: Normal: RUE, LUE, RLE, LLE, Face - Cardiac Rhythm: Regular Murmur: None - Pulmonary Breath Sounds: bilateral Clear Respiratory Effort: Symmetrical Anesthesia Assess/Plan ASA Score: 2 (RA) Modified Clif[place] Scale for Level of Consciousness: Cooperative, oriented, and tranquil Anesthetic Plan: General Monitoring Plan: Standard Monitors Recovery Plan: PACU Anes Supervising Prov Stmt: PT seen/evaluated, R&B Discussed, questions answered and consent obtained. Reji Jones MD
[2017-10-08] MEDS ORDERED: Lidocaine -MPF 2% 2 ML VIAL ONE (11:54)
[2017-10-08] MEDS ORDERED: *HR* FentaNYL (PF) 100 MCG/2 ML VIAL ONE (11:54)
[2017-10-08] MEDS ORDERED: Ondansetron 4 MG/2 ML VIAL ONE (11:54)
[2017-10-08] MEDS ORDERED: Dexamethasone 4 MG/ML VIAL ONE (11:54)
[2017-10-08] MEDS ORDERED: *HR* Propofol 200 MG/20 ML VIAL IVP ONE (11:55)
[2017-10-08] MEDS ORDERED: *HR* Midazolam HCl 2 MG/2 ML VIAL ONE (11:55)
[2017-10-08] MEDS ORDERED: Isovue-300 50 ML VIAL IVP ONE (12:04)
[2017-10-08] MEDS ORDERED: *HR* Promethazine 25 MG/ML VIAL IVP PRN (12:31)
[2017-10-08] MEDS ORDERED: *HR* OxyCODONE/APAP 5/325 TABLET PO PRN (12:31)
[2017-10-08] MEDS ORDERED: *HR* Labetalol 20 MG/4 ML SYRINGE IVP PRN (12:31)
--- NOTE | 2017-10-08 12:35 | Operative Note ---
Date of procedure: 10/08/17 Pre-op diagnosis: left upj stone Post-op diagnosis: same Procedure: Cystoscopy and left 4.8 x 26 cm ureteral stent placement Anesthesia: GETA Surgeon: Freddy De La Rosa Was there an medical receptionist assistant present: No Estimated blood loss (cc): 0 Specimen: none Condition: stable Disposition: PACU Procedure in Detail: Patient was prepped and draped in normal sterile fashion. Timeout procedure performed. I then inserted the cystoscope into the patient's bladder. Was able to cannulate the left ureteral orifice using a sensor wire. I then placed a 4.8 x 26 cm stent with good curl seen in the left kidney and in the bladder. Bladder was drained and procedure was ended. Patient taken to PACU in stable condition. Patient okay to discharge from urology standpoint. She will be scheduled for return to the operating room for left ESWL.
[2017-10-08] MEDS ORDERED: Naloxone 0.4 MG/ML INJ IVP PRN (12:37)
[2017-10-08] MEDS ORDERED: Ondansetron 4 MG/2 ML VIAL IVP PRN (12:37)
[2017-10-08] MEDS ORDERED: Ketorolac 30 MG/ML VIAL IVP PRN (12:37)
--- NOTE | 2017-10-08 13:10 | Anesthesia Evaluation Post Op ---
Date of Encounter: 10/08/17 Time of Encounter: 13:09 - Vital Signs Vital Signs: Vital Signs/O2 Sat, Most Current Temp Pulse Resp BP Pulse Ox 97.9 F 74 18 110/63 95 10/08/17 12:40 10/08/17 13:00 10/08/17 13:00 10/08/17 13:00 10/08/17 13:00 - Lungs Lungs: Clear Ascult./Percussion - Airway Airway: Non-obstructed - Cardiovascular Regular Rate - Mental Status Mental Status: Alert & Oriented, Answers Appropriately - Pain Pain Scale: 0 Pain Scale used: Numeric (1 - 10) - Nausea Vomiting Nausea Vomiting: Not Present - Hydration Hydration: Tolerates oral liquids, Has not voided - Discharge PostOp Status: Transfer Patient to floor
--- NOTE | 2017-10-08 15:22 | Discharge Summary ---
- NOTES TO OUTPATIENT PROVIDER Notes to Outpatient Provider: Pt to follow up with urology for stent removal. Orders not resulted at time of discharge: Pending orders 10/08/17 XR KUB [XR] Routine XR fluoroscopy <1 hr [XR] Routine 10/08/17 11:27 ECG 12 lead ECG [ECG] Stat Date of Encounter: 10/08/17 Time of Encounter: 09:10 - Discharge Diagnosis (1) Abdominal pain Priority: Secondary Status: Acute Assessment and Plan: Abdomen remains tender to palpation, also reports some flank pain. 5/10. She denies nausea or vomiting. Pain likely due to ureterolithiasis. Pt had ureteral stent placed today, will return to OR for removal. Qualifiers: Abdominal location: left lower quadrant Qualified Code(s): R10.32 - Left lower quadrant pain (2) Left flank pain Priority: Primary Status: Acute Assessment and Plan: Plan as above. (3) Ureterolithiasis Priority: Secondary Status: Acute Assessment and Plan: Pt with obstructing 8mm stone at left UPJ, causing left hydronephrosis. Pt with left flank and LLQ abdominal pain. She denies n/v and states that today pain is 5/10. Stent placed today, will be removed by urology in the OR. Abdomen/Pelvis CT 10/07/17 16:26 IMPRESSION: 1. Obstructing 8 mm stone at the left UPJ, resulting in moderate left-sided hydronephrosis. 2. Subtle layering hyperdensity noted within the gallbladder could indicate sludge or small gallstones. D/ / 10/07/2017 17:04:18 Anthony Ledesma MD / ivelisse Interpreting Provider: Anthony Ledesma MD (4) Rheumatoid arthritis Priority: Secondary Status: Chronic Assessment and Plan: Chronic, follows with rheumatology. Continue medications and follow outpatient. Qualifiers: Rheumatoid arthritis location: unspecified site Rheumatoid factor presence : unspecified presence Qualified Code(s): M06.9 - Rheumatoid arthritis, unspecified Hospital course: Ms. Zapata is a 62 year old female - Time Spent with Patient Total time spent providing and/or coordinating discharge services: - Discharge Medications Prescriptions: HYDROcodone/Acet 5/325 mg [[place] 5-325 mg] 1 tab PO Q6HR PRN 1 Days #4 tablet PRN Reason: Severe Pain Home Medications: Citalopram Hydrobromide [Citalopram HBr] 40 mg PO DAILY 10/07/17 [History] Hydroxychloroquine [Plaquenuil] 200 mg PO BID 10/07/17 [History] Naproxen 500 mg PO BID 10/07/17 [History] Tramadol HCl [Ultram] 50 mg PO BID PRN 10/07/17 [History] HYDROcodone/Acet 5/325 mg [[place] 5-325 mg] 1 tab PO Q6HR PRN 1 Days #4 tablet [Rx] Allergies/Adverse Reactions: 3 Allergy/AdvReac Type Severity Reaction Status Date / Time No Known Allergies Allergy Verified 10/07/17 17:40 Date of admission: 10/07/17 18:05 Primary care physician: Annabel Wills MD Consults: 10/07/17 18:59 Consult to Urology [CONS] Routine Consulting Provider: Urology Cecilia Reason for Consult: L 8mm UPJ obstructing stone Time Notified: 17:00 Call Completed: Yes 10/07/17 19:37 Consult to Drum Stenciler [CONS] Routine Reason for SW Consult: pt concerned about hospital expense Discharging clinician: Carolina Escobedo Anticipated date of discharge: 10/08/17 - Constitutional Vitals: Temp Pulse Resp BP Pulse Ox 98.2 F 80 18 115/62 92 10/08/17 15:06 10/08/17 15:06 10/08/17 15:06 10/08/17 15:06 10/08/17 15:06 General appearance: Present: cooperative, mild distress, A&O X 3, pleasant, answers questions appropriately - Head Head exam: Present: atraumatic, normal inspection, normocephalic - Eye Eye exam: Present: normal appearance, conjuntiva pink, sclera anicteric - Neck Neck exam general surgery: Present: supple, trachea midline. Absent: lymphadenopathy, tenderness - Respiratory Respiratory exam: Present: CTAB. Absent: accessory muscle use, chest wall tenderness, rales, respiratory distress, rhonchi, wheezes - Cardiovascular Cardiovascular exam: Present: RRR, +S1, +S2. Absent: diastolic murmur, gallop, rubs, systolic murmur - GI/Abdominal GI/Abdominal exam: Present: normal bowel sounds, soft, tenderness. Absent: distended, hepatomegaly - Extremities Exam Extremities exam: Present: normal capillary refill, normal inspection, warm, radial pulses palpable and symmetrical. Absent: calf tenderness, cyanotic, pedal edema, tenderness - Neurological Exam Neurological exam: Present: alert, oriented X3, no focal deficits. Absent: facial droop, speech deficit - Skin Skin exam: Present: dry, intact, normal color, warm. Absent: rash - Patient Status Disposition: Home, Self-Care Condition: Good Functional capacity at discharge: independent ambulation Overall status at discharge: patient is progressing back to baseline - Discharge Instructions Follow Up With: Freddy De La Rosa MD [Partnered Physician] - Annabel Wills MD [Primary Care Provider] - Forms: ED Satisfaction Letter, Work/School Release Additional Instructions: Please follow up with your PCP and Urology as scheduled. Return to the ER as needed for any other problems or concerns, or if your symptoms return or worsen. Take your medications as directed Return to your normal diet and activities as tolerated. - Diet and Activity Activity: increase activity as tolerated Diet: advance to your usual diet
[2017-10-08] MEDS ORDERED: cefTRIAXone 2,000 MG in Water for inj. (sterile) 20 ML 20 ML IVP SCH (19:00)
[2017-10-09 06:30] VITALS: BP 129/82
[2017-10-09] MEDS: *HR* HYDROcodone/Acet 5/325 mg TABLET PO PRN (06:51)
--- NOTE | 2017-10-09 08:52 | Internal Med Progress Note ---
Hospitalist Progress Note - Encounter Date of Encounter: 10/09/17 Time of Encounter: 08:20 - Subjective Interval History: Patient was seen and assessed at bedside at 8:20 AM. She is alert, awake, oriented. She reports her pain is under control. She denies nausea, vomiting, diarrhea, abdominal pain. She denies chest pain or shortness of breath. She states she is ready for discharge this morning. - Exam Vitals: Temp Pulse Resp BP Pulse Ox 98.3 F 80 15 129/82 95 10/09/17 06:29 10/09/17 06:29 10/09/17 06:29 10/09/17 06:29 10/09/17 06:29 - Assessment and Plan (1) Abdominal pain Current Visit: Yes Status: Acute Assessment and Plan: Abdomen non tender to palpation, also reports some flank pain. 1/10. She denies nausea or vomiting. Pain likely due to ureterolithiasis. Pt had ureteral stent placed 10/08, will return to OR for removal. (2) Left flank pain Current Visit: Yes Status: Acute Assessment and Plan: Plan as above. (3) Ureterolithiasis Current Visit: Yes Status: Acute Assessment and Plan: Pt with obstructing 8mm stone at left UPJ, causing left hydronephrosis. Pt with left flank and LLQ abdominal pain. She denies n/v and states that today pain is \03/20. Stent placed 10/08, will be removed by urology in the OR after discharge. Abdomen/Pelvis CT 10/07/17 16:26 IMPRESSION: 1. Obstructing 8 mm stone at the left UPJ, resulting in moderate left-sided hydronephrosis. 2. Subtle layering hyperdensity noted within the gallbladder could indicate sludge or small gallstones. D/ / 10/07/2017 17:04:18 Anthony Ledesma MD / ivelisse Interpreting Provider: Anthony Ledesma MD (4) Rheumatoid arthritis Current Visit: Yes Status: Chronic Assessment and Plan: Chronic, follows with rheumatology. Continue Ultram and follow outpatient. DVT Prophylaxis: Pt is ambulatory, - Time Spent with Patient Total time spent is greater than 50% in coordination of care (as documented) at patient's floor/unit and/or counseling patient: less than 15 minutes Plan of Care Discussed with: nurse Internal Medicine: Result - Labs CBC & Chem 7: 10/08/17 04:55 10/08/17 04:55 - ABG Interpretation ABG results: PT/INR, D-dimer PT 11.2 Seconds (9.4-12.1) 10/07/17 16:27 - VTE Documentation of Mechanical Device: Intermittent pneumatic compression device Consult Discharge Plan - Plan Additional Instructions: Please follow up with your PCP and Urology as scheduled. Return to the ER as needed for any other problems or concerns, or if your symptoms return or worsen. Take your medications as directed Return to your normal diet and activities as tolerated. Referrals: Freddy De La Rosa MD [Partnered Physician] - Annabel Wills MD [Primary Care Provider] - (1) Abdominal pain Qualifiers: Abdominal location: left lower quadrant Qualified Code(s): R10.32 - Left lower quadrant pain (4) Rheumatoid arthritis Qualifiers: Rheumatoid arthritis location: unspecified site Rheumatoid factor presence: unspecified presence Qualified Code(s): M06.9 - Rheumatoid arthritis, unspecified
--- NOTE | 2017-10-11 12:50 | Electrocardiograph Report ---
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
== END 2017-10-09 10:34 | disposition home or self-care (01) | DRG 694 ==
LOC: 3BNU 15:50 → EMEROO 15:50 → 3BNU 18:50
PROVIDERS: ADMIT Internal Medicine; ATTEND Internal Medicine